=== PATIENT | female | born 1995 | race Caucasian/White ===

== ENCOUNTER 2021-07-07 07:00 | Inpatient (IN) | payer BC, SELFPAY ==
[2021-07-07] VITALS (45 sets, daily range): BP systolic 102–144; BP diastolic 54–98; PULSE 75–113; RESP 18; TEMP 36.7–37; O2SAT 97–100; BMI 37.8
[2021-07-07] MEDS: Lactated Ringers 1,000 ML 50 ML IV (07:40)
[2021-07-07 07:57] LABS: Absolute Lymphocyte Count 2.13 X10^3/uL (0.83-4.51); Absolute Neutrophil Count 4.5 X10^3/uL (2.0-7.7); Basophil# 0.02 X10^3/uL; Basophil% 0.3 % (0-1); Eosinophil# 0.06 X10^3/uL; Eosinophils% 0.8 % (0-5); Hematocrit 33.6 % (37-47); Hemoglobin 10.8 g/dL (12.0-15.0); Lymphocyte # 2.13 X10^3/ul (0.83-4.51); Lymphocyte % 29.7 % (19-41); Mean Corp Hgb Conc 32.1 g/dL (32-36); Mean Corpuscular Hgb 27.8 pg (27.0-32.0); Mean Corpuscular Volume 86.4 fL (81-99); Mean Platelet Vol. 9.7 fl (6.2-12.0); Monocyte% 5.6 % (0-10); NRBC Flagged by Analyzer 0 % (0-5); Neutrophil # 4.48 X10^3/uL (2.7-7.7); Neutrophil % 62.5 % (47-70); Platelet Count 236 K/mm3 (150-450); RBC Distribution Width CV 15.9 % (11.6-14.6); RBC Distribution Width SD 48.8 fl (35.1-43.9); Red Blood Count 3.89 M/mm3 (4.2-5.4); White Blood Count 7.2 K/mm3 (4.4-11.0)
[2021-07-07] MEDS: Oxytocin 30 units/NS 500 ml 30 UNITS/500 ML IV.SOLN IV (08:13)
[2021-07-07] MEDS: 0.9% Normal Saline Single 100 ML IV.SOLN. INTRA-UTER (08:14)
[2021-07-07 08:40] LABS: Bedside Glucose 104 mg/dL (74-106)
[2021-07-07 09:46] LABS: Bedside Glucose 85 mg/dL (74-106)
[2021-07-07] MEDS: Lactated Ringers 500 ML 999 ML IV (10:50)
[2021-07-07] MEDS: fentaNYL-bupivacaine (epidural) 100 ML BAG EPIDURAL (11:39)
--- NOTE | 2021-07-07 13:07 | PN.OBGYN_ITS ---
Subjective Subjective Resting in bed, comfortable with epidural. Partner at bedside. Objective Data Objective Data Vital Signs: Vital Signs Temp Pulse BP Pulse Ox 98.0 F 92 119/80 98 07/07/21 11:14 07/07/21 12:31 07/07/21 12:31 07/07/21 12:28 Weight: 200 lb Body Mass Index (BMI) 37.8 Intake & Output: Intake and Output for Last 24 Hours 07/05/21 07/06/21 07/07/21 23:59 23:59 23:59 Intake Total 669.11 / 669.11 Balance 669.11 / 669.11 Lab / Micro Data Result Diagrams: 07/07/21 07:40 Labs: Laboratory Results - last 24 hr 07/07/21 07:40: WBC 7.2, RBC 3.89 L, Hgb 10.8 L, Hct 33.6 L, MCV 86.4, MCH 27.8, MCHC 32.1, RDW Std Deviation 48.8 H, RDW Coeff of [place] 15.9 H, Plt Count 236, MPV 9.7, Immature Gran % (Auto) 1.100 H, Neut % (Auto) 62.5, Lymph % (Auto) 29.7, [place] % (Auto) 5.6, Eos % (Auto) 0.8, Baso % (Auto) 0.3, Absolute Neuts (auto) 4.5, Absolute Lymphs (auto) 2.13, Nucleated RBC % 0 07/07/21 07:40: Blood Type O POSITIVE, Antibody Screen NEGATIVE 07/07/21 08:33: POC Glucose 104 07/07/21 09:32: POC Glucose 85 Micro: Microbiology 07/07/21 07:33 Nasal Secretion SARS-CoV-2 Antigen (Rapid) - Final Physical Exam Narrative 5cm/70%/-1. AROM for moderate amount of thin meconium stained fluid NST FHR Rate Baby A Baseline: 145 Variability:: Minimal Accelerations:: 15 x 15 Decelerations:: None FHR Category:: Category II Uterine Activity:: every 2-3 minutes Assessment & Plan (1) Thin meconium stained amniotic fluid: PLAN: 1) AROM for meconium stained fluid. Peds to be present at delivery 2) Category 2 FHT, continue with active management and pitocin per protocl 3) managing labor and delivery
[2021-07-07 13:46] LABS: Bedside Glucose 83 mg/dL (74-106)
[2021-07-07 15:36] LABS: Bedside Glucose 109 mg/dL (74-106)
[2021-07-07 15:36] LABS: Bedside Glucose 82 mg/dL (74-106)
[2021-07-07] MEDS: Lactated Ringers 1,000 ML 200 ML IV (15:58)
[2021-07-07] MEDS: Oxytocin 30 units/NS 500 ml 30 UNITS/500 ML IV.SOLN 334 UNITS IV (16:43)
--- NOTE | 2021-07-07 16:50 | PCM.HP.OB ---
HPI - General General Date of Admission: 07/07/21 Date of Service: 07/07/21 Chief Complaint: induction of labor HPI Narrative PHILLIP HITCHCOCK, is a 19-year-old 2 para 1-0-0-1 who presents with EDC of 07/13/2021 for induction of labor at 39-1/7 weeks gestation. has been complicated to date by COVID-19 during the second in April 2021, fetus noted to have clubfoot on ultrasound. In addition patient had infant gestational diabetes on insulin. Was fairly well controlled. She denied any vaginal bleeding or leaking of fluid. She had good movement. She had gestational diabetes in her previous . Maternal Data Information Final SHELBIE: 07/13/21 Gestational age: 39 6/7 PFSH PFSH Home Medications Vitamin 1 ea PO DAILY 07/05/16 [History Last Taken 07/06/21] insulin NPH isoph U-100 human [Novolin N Flexpen] 14 unit SUBCUT DAILY 07/07/21 [History Last Taken 07/06/21] Allergy/AdvReac Type Severity Reaction Status Date / Time No Known Allergies Allergy Verified 07/05/16 11:24 Social History Smoking Status: Never smoker History Elective abortions Hx Para 1 Spontaneous abortions Hx # Term Pregnancies Ectopic pregnancies Hx # Pregnancies Multiple births # of living children ROS Constitutional Constitutional: Denies fatigue, fever(s) or malaise Eyes Eyes: Denies change in vision ENT HEENT: Denies dizziness or headache(s) Cardiovascular Cardiovascular: Denies chest pain, dyspnea or lightheadedness Respiratory/Chest Respiratory/Chest: Denies cough or dyspnea Gastrointestinal Gastrointestinal: Denies change in bowel habits Genitourinary Genitourinary: Denies burning urination or genital lesions Integumentary Integumentary: Denies rash Neurologic Neurologic: Denies confusion, dizziness, headache(s), numbness or weakness Vital Signs Vital Signs Vital Signs: 07/07/21 07:30 07/07/21 09:30 07/07/21 10:32 Temperature 98.1 F Temperature Source Temporal Pulse Rate 111 H 94 84 Blood Pressure 135/87 H 124/74 H 119/67 BP Systolic 135 124 119 BP Diastolic 87 74 67 Pulse Ox 07/07/21 11:13 07/07/21 11:14 07/07/21 11:18 Temperature 98.0 F Temperature Source Temporal Pulse Rate 97 91 Blood Pressure 129/98 H BP Systolic 129 BP Diastolic 98 Pulse Ox 99 100 07/07/21 11:20 07/07/21 11:23 07/07/21 11:24 Temperature Temperature Source Pulse Rate 102 H 88 89 Blood Pressure 144/61 H 135/61 H BP Systolic 144 135 BP Diastolic 61 61 Pulse Ox 98 07/07/21 11:28 07/07/21 11:29 07/07/21 11:33 Temperature Temperature Source Pulse Rate 87 85 86 Blood Pressure 130/60 H BP Systolic 130 BP Diastolic 60 Pulse Ox 98 98 07/07/21 11:35 07/07/21 11:38 07/07/21 11:39 Temperature Temperature Source Pulse Rate 91 91 88 Blood Pressure 124/64 H 123/70 H BP Systolic 124 123 BP Diastolic 64 70 Pulse Ox 97 07/07/21 11:43 07/07/21 11:44 07/07/21 11:48 Temperature Temperature Source Pulse Rate 100 88 Blood Pressure 121/68 H BP Systolic 121 BP Diastolic 68 Pulse Ox 97 97 07/07/21 11:50 07/07/21 11:53 07/07/21 11:55 Temperature Temperature Source Pulse Rate 86 83 101 H Blood Pressure 126/65 H 124/68 H BP Systolic 126 124 BP Diastolic 65 68 Pulse Ox 99 07/07/21 11:58 07/07/21 11:59 07/07/21 12:03 Temperature Temperature Source Pulse Rate 86 86 87 Blood Pressure 126/67 H BP Systolic 126 BP Diastolic 67 Pulse Ox 98 99 07/07/21 12:08 07/07/21 12:13 07/07/21 12:18 Temperature Temperature Source Pulse Rate 75 93 90 Blood Pressure BP Systolic BP Diastolic Pulse Ox 98 98 98 07/07/21 12:23 07/07/21 12:28 07/07/21 12:31 Temperature Temperature Source Pulse Rate 80 87 92 Blood Pressure 119/80 BP Systolic 119 BP Diastolic 80 Pulse Ox 98 98 07/07/21 13:34 07/07/21 13:36 07/07/21 14:29 Temperature 98.2 F Temperature Source Temporal Pulse Rate 95 89 Blood Pressure 104/54 L 110/57 L BP Systolic 104 110 BP Diastolic 54 57 Pulse Ox 98 07/07/21 15:25 07/07/21 16:25 07/07/21 16:48 Temperature 98.2 F Temperature Source Temporal Pulse Rate 102 H 92 113 H Blood Pressure 115/70 127/79 H 128/73 H BP Systolic 115 127 128 BP Diastolic 70 79 73 Pulse Ox 97 Weight Weight: 90.718 kg Body Mass Index (BMI) 37.8 Physical Exam Const alert and no apparent distress General Appearance: cooperative HEENT normocephalic Resp normal respiratory effort Cardio regular rate GI soft to palpation GI Narrative: gravid, nontender, appropriate for gestational age Extremity no calf tenderness General Extremity: edema Skin no wounds Rashes: No rashes noted Psych activity/motor behavior normal Labs Labs Labs: Blood Type O POSITIVE Antibody Screen NEGATIVE Hct 33.6 % (37-47) L Hgb 10.8 g/dL (12.0-15.0) L Rhogam given: No Assessment & Plan (1) Thin meconium stained amniotic fluid: (2) 39 weeks gestation of : (3) High risk multigravida in third trimester: (4) (spontaneous vaginal delivery): (5) Gestational diabetes requiring insulin:
--- NOTE | 2021-07-07 16:53 | EX.PCM.OBRPT ---
Assessment & Plan (1) Gestational diabetes requiring insulin: (2) High risk multigravida in third trimester: (3) 39 weeks gestation of : Maternal Data Information Final SHELBIE: 07/13/21 Gestational age: 39 6/7 Vaginal Delivery Maternal Presentation Maternal Presentation: Medically Indicated Induction Type of Induction: Pitocin and Amniotomy Medical Reason for Induction: - (gest dm A2) Operative Information Date of Procedure: 07/07/21 Pre-Operative Diagnosis: labor Post-Operative Diagnosis: same Surgery / Procedure Performed: Spontaneous Vaginal Delivery Type of Anesthesia: Epidural and Spinal Special Medications: none Drain: Ghotra to straight drain Estimated Blood Loss: 200 Time of Delivery: 16:38 Findings Description of Procedure: A vigorous [female] infant was delivered LEVI over a small first-degree perineal abrasion that was approximately 0.5 cm x 0.5 cm. The remainder the infant was delivered with maternal pushing and gentle traction only in less than 15 seconds. The Pitocin infusion was initiated for active management of the third stage. The cord was clamped and cut [after 1 minute]. The was attended to by the waiting nursing staff. The placenta was delivered spontaneously and intact. The cervix and vagina were intact. The small vaginal abrasion was hemostatic and not repaired. sponge and needle counts were correct. A vaginal sweep was completed by me. Presentation: LEVI Amniotic Membrane Rupture Type: Artificial Amniotic Fluid Description: Lightly stained meconium Placental Delivery Description: Spontaneous Placenta Disposition: [facility] Cord Vessel Description: 3 Vessels Cord Entanglement: None A Gender: Female (Emmerson) (1 minute): 9 (5 minute): 9 Delayed Cord Clamping: Yes Post Vaginal Delivery Medications Given After Delivery: IV Pitocin Episiotomy Description: None Laceration: 1st degree Complication Complications: None
[2021-07-07 18:01] LABS: Bedside Glucose 75 mg/dL (74-106)
[2021-07-08] VITALS (8 sets, daily range): BP systolic 110–135; BP diastolic 60–67; PULSE 73–97; RESP 16–18; TEMP 36.6–36.9; O2SAT 98–99
[2021-07-08] MEDS: Acetaminophen 500 MG Tablet 1000 MG PO (02:57)
[2021-07-08 07:00] LABS: Bedside Glucose 98 mg/dL (74-106)
--- NOTE | 2021-07-08 07:15 | NURSING ---
bedside report given to Radha Medina RN who is assuming care of pt at this time
--- NOTE | 2021-07-08 08:14 | PCM.PROGNOTE ---
Subjective Subjective patient seen at bedside, doing well. Patient reports good pain control. lochia mild. Objective Data Objective Data Vital Signs: Vital Signs Temp Pulse Resp BP Pulse Ox 98.0 F 73 18 120/61 98 07/08/21 04:38 07/08/21 04:38 07/08/21 04:38 07/08/21 04:38 07/08/21 04:38 Oxygen Delivery Method Room Air Weight: 90.718 kg Body Mass Index (BMI) 37.8 Intake & Output: Intake and Output for Last 24 Hours 07/06/21 07/07/21 07/08/21 23:59 23:59 23:59 Intake Total 2202.71 / 2202.71 Output Total 900 / 900 Balance 1302.71 / 1302.71 Lab / Micro Data Result Diagrams: 07/07/21 07:40 Labs: Laboratory Results - last 24 hr 07/07/21 07:40: Blood Type O POSITIVE, Antibody Screen NEGATIVE 07/07/21 08:33: POC Glucose 104 07/07/21 09:32: POC Glucose 85 07/07/21 13:35: POC Glucose 83 07/07/21 14:46: POC Glucose 109 H 07/07/21 15:29: POC Glucose 82 07/07/21 17:53: POC Glucose 75 07/08/21 06:15: POC Glucose 98 Micro: Microbiology 07/07/21 07:33 Nasal Secretion SARS-CoV-2 Antigen (Rapid) - Final Physical Exam Const alert and oriented x3 General Appearance: cooperative HEENT normocephalic Neck General: normal visual inspection GI soft to palpation and non-distended GI Narrative: Fundus firm Extremity normal to inspection and no calf tenderness Skin no rashes or lesions noted Neuro oriented x3 and CN's II-XII intact bilaterally Psych mental status grossly normal Assessment & Plan Assessment/Plan (1) Vaginal delivery: PLAN: PPD#1 , Doing well Routine care pain mgmt ambulation dc home at 24hrs if breast feeding well.
--- NOTE | 2021-07-08 08:15 | PCM.DC ---
Discharge Instructions Follow Up Care Test Results: Test results from this visit will be discussed in further detail at your follow-up appointment, if applicable. Discharge Plan Admission Admit Date/Time: 07/07/21 07:00 Attending Provider: Jayne Cherry Primary Care Provider: Care PhysicianNegar Primary Discharge Orders/Prescriptions Prescriptions: New acetaminophen 500 mg Tablet 1,000 mg PO Q6H PRN PRN (Reason: Pain 1-10 Or Fever) Qty: 0 RF: 0 ibuprofen 600 mg Tablet 600 mg PO Q6H PRN PRN (Reason: Pain Score 1-3) Qty: 0 RF: 0 Continued Vitamin 1 EACH tablet 1 ea PO DAILY RF: 0 Discontinued Novolin N Flexpen 100 unit/mL (3 mL) Insulin Pen 14 unit SUBCUT DAILY RF: 0 Referrals / Follow Up: Care Physician,No Primary [Primary Care Provider] - Disposition Disposition (needs filled in before D/C Order can be placed): Home, Self Care
[2021-07-08] MEDS: Ibuprofen 600 MG Tablet PO (13:16)
--- NOTE | 2021-07-08 14:11 | CASEMGMT ---
Social Work Assessment Labor and Delivery Unit Date of Referral: 07/07/2021 Time of Referral: 18:54 Referred By: Dr. Jayne Cherry Date of Intervention: 07/08/2021 Time of Intervention: 14:11 Reason for Referral: Referral for Mother of baby (MOB) with questionable bonding with . with clubfoot. History obtained from: MOB, Father of baby (FOB), chart, nursing staff. Household composition: MOB, FOB (Jean Carlos Cosby), Sary Cosby (age 5, : 07/06/2016) and now this , Radha Cosby (: 07/07/2021) have a private home together. No concerns with housing. Patient's parent/guardian status: MOB and FOB have been together for 6-7 years and are . MOB and FOB reports that was planned ?just not the date.? FOB reports that both children now have a birthday that is one day apart. MOB reports that Sary is doing ?okay? with this. FOB has one other child, from a previous relationship, that is now 7 that FOB does not have custody of and does not see ?all that much.? FOB reports that other child lives out of state. Medical History: MOB with history prior to this being born. MOB with induction of labor and vaginal delivery on 07/07/2021. MOB with gestational diabetes. MOB with appropriate care visits. with apgars of 9 and 9 at 1min and 5min. born with clubfoot. MOB reports to have been aware of clubfoot since 20weeks gestation. MOB reports to already have an [facility] set up and plans to reach out to [facility] now that is born to set up an appointment. to follow with Dr. Henson in the community. MOB reports plan to breast feed infant and that is ?going well.? Educational Status: MOB and FOB deny concerns with comprehension or understanding. Financial Status: FOB is primary income earner for the family. 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 FOB is starting a new job and ?we won?t have insurance for a few months.? FOB reports concerns of insurance issues as infant will need medical care/treatment in the next few weeks/months due to clubfoot. This social psychologist able to engage in conversation about Medicaid application for infant and COBRA insurance. FOB plans to reach out to current employer and obtain information about COBRA and how much this might cost. Supplies: MOB reports to have needed supplies including a car seat and crib. Childcare/Caregiver(s): MOB is primary caregiver for infant and older daughter, Sary. Sary is currently with grandparents while MOB, FOB and now are in hospital. Transportation: MOB denies concerns. Programs/Agencies Involved: MOB denies any active community programs/involvement. MOB is interested in apply for [facility] and is planning to do this. Children Services/Legal Issues: MOB/FOB deny any legal issues or concerns. MOB denies any history of children services involvement for family. Mental Health History: MOB denies any mental health history or depression with first . This social psychologist able to engage MOB with conversation about signs and symptoms of depression. MOB denies any suicidal ideations or history of. MOB denies history of counseling. Substance us History: Denies. PHQ-9: Did not trigger. Family/Social Stressors: Denies any current stressors. Support Systems: Patient reports to have positive support system from family and FOB. Depression and Anxiety/Shaken Baby/Safe Sleeping: This social psychologist provided MOB with information on depression and anxiety, shaken baby, safe sleeping and [facility] Community resources along with information on supports for children with disabilities. ASSESSMENT: This social psychologist met with MOB, FOB and infant in room. Introduced self and social psychologist role. MOB agreeable to speak with this social psychologist and provided verbal permission for this social psychologist to speak openly with FOB present. sleeping in bassinet during assessment. MOB and FOB both gazing at infant often during assessment. MOB presents with a flat but engaged affect, initially. As conversation continues, MOB started to become more expressive and engaged in conversation. MOB reports to have a connection with . MOB and FOB with multiple questions about insurance and local resources. This social psychologist able to direct MOB and FOB to resource information that this social psychologist provided. No further questions. MOB denies concerns on returning to the community. Active support and listening provided. PLAN: Infant to discharge to the community. No further services indicated or requested. Lauryn TORREZ, NEAL
== END 2021-07-08 18:30 | disposition home or self-care (01) | DRG 807 ==
PROVIDERS: Admitting Provider Obstetrics & Gynecology; Referring Provider Obstetrics & Gynecology; Visit Provider Obstetrics & Gynecology
DX: O24.424 Gestational diabetes mellitus in childbirth, insulin controlled (principal); Z37.0 Single live birth; O70.0 First degree perineal laceration during delivery; O77.0 Labor and delivery complicated by meconium in amniotic fluid; Z86.16 Personal history of COVID-19; Z3A.39 39 weeks gestation of pregnancy
CPT/HCPCS: 59025; 59050; 82962; 85025; 86850; 86900; 86901; 87426; 99218; J7120; G0378